=== PATIENT | male | born 1975 | race Caucasian/White ===

== ENCOUNTER 2018-10-22 20:51 | Emergency (ER) | payer OTHER ==
[2018-10-22] MEDS ORDERED: CIPROFLOXACIN HCL/DEXAMETHASONE OTIC SUSP OT ONE (21:18)
--- NOTE | 2018-10-22 21:18 | Emergency Department Record ---
History of Present Illness - General Chief complaint: ENT Stated complaint: EAR PAIN Time Seen by Provider: 10/22/18 21:04 Source: Patient Mode of Arrival: Ambulatory Limitations: No limitations - History of Present Illness Initial comments: 43 yo male presents with left ear pain and drainage. He was in [place] last week swimming. He started ear antibiotic/steroid drops 3 days ago without improvement yet. No fevers or chills. No nausea or vomiting. No sore throat. The right ear was initially mildly effected but it is asymptomatic now. MD complaint: Ear pain Onset/Timin -: Days(s) Location: L ear Severity scale (1-10): 6 Quality: Sharp Consistency: Constant Improves with: NSAID Worsens with: Eating, Position, Other Context- Ear: Recent swimming ([place]) Associated Symptoms: Discharge from ear - Related Data Allergies Allergy/AdvReac Type Severity Reaction Status Date / Time No Known Drug Allergies Allergy Verified 10/22/18 21:03 Travel Screening - Travel/Exposure Within Last 30 Days Have you traveled within the last 30 days?: Yes Location Detail:: [place] - Travel/Exposure Within Last Year Have you traveled outside the [place] in the last year?: No - Additonal Travel Details Have you been exposed to anyone with a communicable illness?: No - Travel Symptoms Symptom Screening: None Past Medical History - SOCIAL HISTORY Smoking Status: Never smoker Alcohol Use: Occasional Drug Use: None - RESPIRATORY Hx Respiratory Disorders: Yes Hx Pneumonia: Yes - CARDIOVASCULAR Hx Cardio Disorders: No - NEURO Hx Neuro Disorders: No - GI Hx GI Disorders: No - Hx Genitourinary Disorders: No - ENDOCRINE Hx Endocrine Disorders: No - MUSCULOSKELETAL Hx Musculoskeletal Disorders: No - PSYCH Hx Psych Problems: Yes Hx Anxiety: Yes Hx Depression: Yes Family Medical History Any Significant Family History?: Yes Hx Cancer: Mother Hx Dementia: Mother Hx Heart Disease: Grandparents Hx Stroke: Grandparents Physical Exam - General General Appearance: Alert, Oriented x3, Cooperative, No acute distress Limitations: No limitations - Head Head exam: Atraumatic, Normal inspection - Eye Eye exam: Normal appearance. negative: Conjunctival injection, Scleral icterus - ENT ENT exam: Normal exam, Mucous membranes moist. negative: TM's normal bilaterally Ear exam: Normal external inspection, External canal tenderness, Other ( moderate drainage from the left external canal with external canal swelling). negative: Auricular hematoma, Auricular trauma Nasal Exam: Normal inspection Mouth exam: Normal external inspection Course Vital Signs 10/22/18 20:54 Temperature 98.0 F Pulse Rate 59 L Respiratory 18 Rate Blood Pressure 145/91 Pulse Ox 98 - Reevaluation(s) Reevaluation #1: Upon examination I recommend ear wick for 72 hours A wick was easily placed and drops placed We discussed home care, reasons to return sooner and when to have the wick removed. 10/22/18 21:42 Disposition Disposition: Discharge Clinical Impression: Otitis externa Disposition: Home, Self-Care Condition: (1) Good Instructions: Otitis Externa (ED) Additional Instructions: Call your doctor for the next available follow up appointment first of the week or return to the ED to have the ear wick sponge removed Return to the ER for a recheck if worse, any new concerns or questions Take the prescriptions provided as directed with 3 drops twice daily Review this ER visit and the tests performed with your family doctor Forms: Patient Portal Access Time of Disposition: 21:34 Quality - Quality Measures Quality Measures: N/A - Blood Pressure Screening Does Patient Have Any of the Following: No Blood Pressure Classification: Hypertensive Reading Systolic Measurement: 145 Diastolic Measurement: 91 Screening for High Blood Pressure: < Pre-Hypertensive BP, F/U Documented > [ [id number]] Pre-Hypertensive Follow-up Interventions: Referral to alternative/primary care provider.
[2018-10-22] MEDS ORDERED: HYDROCODONE/APAP 5/325MG TABLET PO ONE (21:37)
== END 2018-10-22 21:47 | disposition home or self-care (01) ==
LOC: ER 20:51
DX: H60.92 Unspecified otitis externa, left ear (principal)
CPT/HCPCS: 99282; 99283